=== PATIENT | male | born 1935 | race Caucasian/White ===

== ENCOUNTER 2017-04-07 13:16 | Emergency (ER) | payer OTHER ==
[2017-04-07 13:35] VITALS: BP 119/78; PULSE 90; RESP 16; TEMP 99.3; O2SAT 92
[2017-04-07] MEDS ORDERED: AZITHROMYCIN 250 MG TAB PO ONE (13:37)
--- NOTE | 2017-04-07 13:50 | EDPHY ---
H & P Time Seen by Provider: 04/07/17 13:27 HPI/ROS: This patient complains of a cough for 6 days duration. Explains that his feeling of chest congestion associated with his cough over the past few days. However he reports that it is not coming up. He reports feeling a very mild dyspnea. No exacerbating or alleviating factors. He describes no other symptoms associated with this and reports that it feels like bronchitis that he has had in the past. ROS: Constitutional: No significant fatigue associated with the symptoms. HEENT: No nasal congestion. No sore throat. Pulmonary: No pleuritic pain. No respiratory distress. No hemoptysis. Cardiovascular: No chest pain. No heart palpitations. No lower extremity swelling. GI: No nausea vomiting or other symptoms. He reports slight diminished appetite this week but still tolerating good p.o. intake : No complaints Integumentary: No skin rash Neuro: No headache or other complaints Endocrine: No polyuria polydipsia or other complaints Complete review of symptoms is otherwise negative Past Medical/Surgical History: Bronchitis Cardiac stent 20 years ago without cardiacs symptoms since Hypertension Smoking Status: Former smoker (Quit smoking 40 years ago) Physical Exam: Pleasant 81-year-old male appears younger than his stated age. Vitals are normal with exception of an O2 sat of 92% on room air. General Appearance: Alert, no distress. Eyes: Pupils equal and round no pallor or injection. ENT, Mouth: Mucous membranes moist. Respiratory: Mild rhonchi. No wheeze. No rales. No increased work of breathing. Cardiovascular: Regular rate and rhythm. No JVD. No peripheral edema. Gastrointestinal: Abdomen is soft and nontender, no masses, bowel sounds normal. Neurological: GCS 15 with no focal sensory or motor deficits Skin: Warm and dry, no rashes. Musculoskeletal: Neck is supple nontender. Extremities are symmetrical, full range of motion. 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 Clinically, patient's findings are consistent with bronchitis. I explained that we cannot rule out pneumonia, lung lesion, myocardial infarction or other complicating factors that further workup. The patient understands this but declines further workup at this time. Given his age and physical exam findings will cover with macrolide antibiotic. Counseled regarding this needs given a 1st dose of Zithromax here. Will also place him on Xopenex inhaler rather than albuterol given cardiac history - Depart Disposition: Home, Routine, Self-Care Clinical Impression: Acute bronchitis Qualifiers: Bronchitis organism: unspecified organism Qualified Code(s): J20.9 - Acute bronchitis, unspecified Condition: Good Instructions: Acute Bronchitis (ED) Additional Instructions: Diagnosis: Acute bronchitis Plan: Humidifier Xopenex inhaler with spacer for cough, wheeze or shortness of breath Zithromax antibiotic Return for any significant worsening despite the treatment plan. Follow up with primary care physician if your cough is not resolving with treatment plan over the next week or so. Prescriptions: Azithromycin [Zithromax] 250 mg PO DAILY #4 tab Levalbuterol Inhaler [Xopenex Hfa Inhaler] 2 puffs IH Q4 PRN #1 mdi PRN Reason: Wheezing Referrals: David Rios DO [Primary Care Provider] - As per Instructions
== END 2017-04-07 14:03 | disposition home or self-care (01) ==
LOC: CED 13:16
DX: J20.9 Acute bronchitis, unspecified (principal); I10 Essential (primary) hypertension; Z87.891 Personal history of nicotine dependence; Z95.5 Presence of coronary angioplasty implant and graft

== ENCOUNTER → 2017-11-29 | Outpatient (CLI) | payer OTHER | LOC: BHFA 08:30 | PROVIDERS: ATTEND Internal Medicine Cardiovascular Disease | DX: R07.89 Other chest pain (principal) | CPT/HCPCS: 78452; 93017; A9500 ==

== ENCOUNTER 2019-01-19 21:15 | Emergency (ER) | payer OTHER ==
[2019-01-19 22:00] LABS: PLATELET COUNT 147 10^3/uL (150-400)
[2019-01-19 22:36] VITALS: BP 147/87
--- NOTE | 2019-01-19 22:38 | EDPHY ---
H & P Stated Complaint: left arm felt hot and felt like Hr was irregular resolved at this time Time Seen by Provider: 01/19/19 22:10 HPI/ROS: HPI The patient presents with left arm sensation of warmth which started at about 7: 00 p.m. Tonight while seated watching television. He had a diffuse sensation that felt hot to him that lasted for about 1.5 hr, came on slowly, improved on its own. It was not associated with any chest pain, nausea, vomiting, dizziness , diaphoresis, palpitations. The patient has a known history of PACs and did feel a few of these. He has been lifting weights recently and wonders if this could be the cause of his symptoms. Yesterday he ran half a mi and walked 3 miles with no chest pain or shortness of breath. REVIEW OF SYSTEMS 10 systems were reviewed and negative with the exception of the elements mentioned in the history of present illness. PMHx: History of CAD with stent in place Soc Hx: Here with his , housed PHYSICAL General Appearance: Alert, no distress Eyes: Pupils equal and round no pallor or injection ENT, Mouth: Mucous membranes moist Respiratory: There are no retractions, lungs are clear to auscultation Cardiovascular: Regular rate and rhythm Gastrointestinal: Abdomen is soft and non-tender, no masses, bowel sounds normal Neurological: A&O, moves all extremities Skin: Warm and dry, no rashes Musculoskeletal: Neck is supple non tender Extremities: symmetrical, full range of motion Psychiatric: Patient is oriented X 3, there is no agitation Source: Patient Exam Limitations: No limitations - Personal History Current Tetanus/Diphtheria Vaccine: Yes Current Tetanus Diphtheria and Acellular Pertussis (TDAP): Yes - Medical/Surgical History Hx Asthma: No Hx Chronic Respiratory Disease: No Hx Diabetes: No Hx Cardiac Disease: Yes Hx Renal Disease: No Hx Cirrhosis: No Hx Alcoholism: No Hx HIV/AIDS: No Hx Splenectomy or Spleen Trauma: No Other PMH: Cardiac stents. Tonsilectomy. Appendectomy. 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 Summary impression: PACs present, no ST segment change, unchanged from prior EKG Differential Diagnosis: 83-year-old male with known CAD with stent in place presents from home with transient sensation of left upper arm warmth, now completely resolved. Here initially slightly hypertensive, other vital signs are normal. Asymptomatic throughout his time in the ED. Has been lifting weights recently. EKG, troponin, basic laboratory testing all normal. Patient feels comfortable discharging home with follow-up with primary care doctor or Cardiology. He had stent placed many years ago and has not had follow-up in several years though may benefit for some sort of provocative testing. Given absence of chest pain or any other typical symptoms of ACS, I feel this is unlikely. I have considered muscle strain possibly. Patient had no weakness making TIA unlikely. - Data Points Laboratory Results: Laboratory Results 01/19/19 21:45 01/19/19 21:45 01/19/19 01/19/19 21:45 21:45 WBC 7.15 10^3/uL 10^3/uL (3.80-9.50) RBC 4.92 10^6/uL 10^6/uL (4.40-6.38) Hgb 14.9 g/dL g/dL (13.7-17.5) Hct 44.9 % % (40.0-51.0) MCV 91.3 fL fL (81.5-99.8) MCH 30.3 pg pg (27.9-34.1) MCHC 33.2 g/dL g/dL (32.4-36.7) RDW 13.2 % % (11.5-15.2) Plt Count 147 10^3/uL L 10^3/uL (150-400) MPV 10.2 fL fL (8.7-11.7) Neut % (Auto) 57.4 % % (39.3-74.2) Lymph % (Auto) 25.9 % % (15.0-45.0) [place] % (Auto) 12.7 % % (4.5-13.0) Eos % (Auto) 2.9 % % (0.6-7.6) Baso % (Auto) 0.7 % % (0.3-1.7) Nucleat RBC Rel Count 0.0 % % (0.0-0.2) Absolute Neuts (auto) 4.10 10^3/uL 10^3/uL (1.70-6.50) Absolute Lymphs (auto) 1.85 10^3/uL 10^3/uL (1.00-3.00) Absolute Monos (auto) 0.91 10^3/uL H 10^3/uL (0.30-0.80) Absolute Eos (auto) 0.21 10^3/uL 10^3/uL (0.03-0.40) Absolute Basos (auto) 0.05 10^3/uL 10^3/uL (0.02-0.10) Absolute Nucleated RBC 0.00 10^3/uL 10^3/uL (0-0.01) Immature Gran % 0.4 % % (0.0-1.1) Immature Gran # 0.03 10^3/uL 10^3/uL (0.00-0.10) Sodium 138 mEq/L mEq/L (135-145) Potassium 4.1 mEq/L mEq/L (3.5-5.2) Chloride 105 mEq/L mEq/L (97-110) Carbon Dioxide 24 mEq/l mEq/l (22-31) Anion Gap 9 mEq/L mEq/L (6-14) BUN 26 mg/dL H mg/dL (7-23) Creatinine 1.2 mg/dL mg/dL (0.7-1.3) Estimated GFR 58 Glucose 95 mg/dL mg/dL (70-100) Calcium 9.2 mg/dL mg/dL (8.5-10.4) Departure - Departure Disposition: Home, Routine, Self-Care Clinical Impression: Left upper arm pain, Hx of coronary artery disease Condition: Good Instructions: Arm Pain (ED) Additional Instructions: Please return to the emergency department if your worse in any way. Please follow-up with your primary care doctor or carbon brush maker in the next few days. Referrals: David Rios DO [Primary Care Provider] - As per Instructions Sandeep Thomas MD [Medical Doctor] - As per Instructions
== END 2019-01-19 22:58 | disposition home or self-care (01) ==
DX: M79.622 Pain in left upper arm (principal); I25.10 Atherosclerotic heart disease of native coronary artery without angina pectoris; Z95.9 Presence of cardiac and vascular implant and graft, unspecified
CPT/HCPCS: 84484-ER